=== PATIENT | female | born 1955 | race Two or more races ===

== ENCOUNTER 2022-11-25 13:13 | Outpatient (CLI) | payer OTHER | END 2022-11-25 13:21 | disposition home or self-care (01) | LOC: SONOGRAMA 13:13 | PROVIDERS: ATTEND Orthopaedic Surgery | DX: M25.512 Pain in left shoulder (principal) ==

== ENCOUNTER 2023-01-12 07:07 | Outpatient (CLI) | payer OTHER | END 2023-01-12 07:09 | disposition home or self-care (01) | LOC: NUCLEAR 07:07 | PROVIDERS: ATTEND Internal Medicine Cardiovascular Disease | DX: I20.9 Angina pectoris, unspecified (principal) | CPT/HCPCS: 78452; 93017; A9500; J0153 ==